=== PATIENT | female | born 1970 | race Caucasian/White ===

== ENCOUNTER 2016-08-02 10:43 | Outpatient (CLI) | payer MEDICARE, MEDICAID | END 2016-08-02 10:44 | disposition home or self-care (01) | DX: R92.1 Mammographic calcification found on diagnostic imaging of breast (principal) ==

== ENCOUNTER 2016-08-15 08:42 | Outpatient (CLI) | payer MEDICARE, MEDICAID | END 2016-08-15 08:43 | disposition home or self-care (01) | DX: E78.5 Hyperlipidemia, unspecified (principal); D64.9 Anemia, unspecified; E03.9 Hypothyroidism, unspecified; E55.9 Vitamin D deficiency, unspecified ==

== ENCOUNTER 2017-03-02 09:09 | Outpatient (CLI) | payer MEDICARE, MEDICAID ==
--- NOTE | 2017-03-02 16:29 | Mammography Report ---
DIGITAL DIAGNOSTIC LEFT MAMMOGRAM: 03/02/2017 CLINICAL INDICATION: Followup calcifications. TECHNIQUE: Left CC, MLO, true lateral, and spot magnification views. COMPARISON: 07/2016, 02/2016, 06/2015, 05/2015, 09/2013, 10/2012, 03/2012, 02/2012, 12/2010, 01/2010. FINDINGS: The left breast demonstrates scattered fibroglandular densities. Calcifications in the lef t lower central breast are stable. Fat necrosis in the left upper inner posterior breast is stable. N o suspicious masses, clustered microcalcifications, or regions of architectural distortion are identi fied. IMPRESSION: PROBABLE BENIGN CALCIFICATIONS IN THE LEFT LOWER CENTRAL BREAST. RECOMMENDATION: DIAGNOSTIC BILATERAL MAMMOGRAM IN SIX MONTHS. BIRADS CATEGORY 3-PROBABLE BENIGN FINDINGS. STANDARD QUALIFYING STATEMENTS 1. This examination was reviewed with the aid of Computer-Aided Detection (CAD). 2. A negative or benign imaging report should not delay biopsy if clinically suspicious findings are present. Consider surgical consultation if warranted. More than 5% of cancers are not identified by i maging. 3. Dense breasts may obscure an underlying neoplasm. JOB #: [id number] EXT JOB #:[id number]
== END 2017-03-02 09:10 | disposition home or self-care (01) ==
LOC: DI 09:09
PROVIDERS: ATTEND Family Medicine
DX: R92.1 Mammographic calcification found on diagnostic imaging of breast (principal)

== ENCOUNTER 2017-03-21 08:44 | Outpatient (CLI) | payer MEDICAID, MEDICARE ==
[2017-03-21 14:22] LABS: BASOPHILS % (AUTO) 0.5 %; EOSINOPHILS # (AUTO) 0.2 10^3/uL (0.0-0.7); EOSINOPHILS % (AUTO) 3.1 %; HCT - HEMATOCRIT 35.9 % (37.0-47.0); HGB - HEMOGLOBIN 12.2 g/dL (12.0-16.0); LYMPHOCYTES # (AUTO) 2.4 10^3/uL (1.5-3.5); LYMPHOCYTES % (AUTO) 40.1 %; MEAN CORPUSCULAR HEMOGLOBIN 29.8 pg (27.0-31.0); MEAN CORPUSCULAR VOLUME 87.7 fL (81.0-99.0); MEAN PLATELET VOLUME 8.1 fL (7.9-10.8); MONOCYTES # (AUTO) 0.5 10^3/uL (0.0-1.0); MONOCYTES % (AUTO) 8.5 %; NEUTROPHILS # (AUTO) 2.8 10^3/uL (1.5-6.6); NEUTROPHILS % (AUTO) 47.8 %; RED BLOOD COUNT 4.09 10^6/uL (4.20-5.40); RED CELL DISTRIBUTION WIDTH 13.5 % (12.0-15.0); UNCORRECTED WHITE BLOOD COUNT 5.9 x10^3/uL; WHITE BLOOD COUNT 5.9 x10^3/uL (4.8-10.8)
[2017-03-21 14:38] LABS: ALBUMIN/GLOBULIN RATIO 1.4 (1.0-2.2); BILIRUBIN,TOTAL 0.4 mg/dL (0.2-1.0); BUN - BLOOD UREA NITROGEN 22 mg/dL (6-20); CALCIUM 9.8 mg/dL (8.5-10.3); CARBON DIOXIDE - CO2 31 mmol/L (21-32); CHLORIDE 100 mmol/L (101-111); CHOL/HDL RATIO 3.1 (<4.4); CHOLESTEROL 159 mg/dL; GFR - MDRD 59 (>89); GLUCOSE 93 mg/dL (70-100); HDL CHOLESTEROL 52 mg/dL; LDL/HDL RATIO 1.8 (<4.4); POTASSIUM 3.7 mmol/L (3.5-5.0); SODIUM 140 mmol/L (135-145); TOTAL PROTEIN 7.4 g/dL (6.7-8.2); TRIGLYCERIDES 71 mg/dL; VLDL CHOLESTEROL 14 mg/dL
== END 2017-03-21 23:59 ==
LOC: LAB.N 08:44
PROVIDERS: ATTEND Family Medicine
DX: E78.5 Hyperlipidemia, unspecified (principal); D64.9 Anemia, unspecified; E03.9 Hypothyroidism, unspecified
CPT/HCPCS: 36415; 80053; 80061; 84443; 85025

== ENCOUNTER 2017-09-17 08:00 | Outpatient (CLI) | payer MEDICARE ==
[2017-09-17 12:34] LABS: BASOPHILS % (AUTO) 0.5 %; EOSINOPHILS # (AUTO) 0.2 10^3/uL (0.0-0.7); EOSINOPHILS % (AUTO) 3.3 %; HGB - HEMOGLOBIN 11.1 g/dL (12.0-16.0); LYMPHOCYTES # (AUTO) 2.2 10^3/uL (1.5-3.5); LYMPHOCYTES % (AUTO) 44.6 %; MEAN CORPUSCULAR HEMOGLOBIN 30.3 pg (27.0-31.0); MEAN CORPUSCULAR HGB CONC 33.3 g/dL (32.0-36.0); MEAN CORPUSCULAR VOLUME 90.9 fL (81.0-99.0); MEAN PLATELET VOLUME 7.9 fL (7.9-10.8); MONOCYTES # (AUTO) 0.4 10^3/uL (0.0-1.0); MONOCYTES % (AUTO) 8.2 %; NEUTROPHILS # (AUTO) 2.1 10^3/uL (1.5-6.6); NEUTROPHILS % (AUTO) 43.4 %; PLT - PLATELET COUNT 281 10^3/uL (130-450); RED BLOOD COUNT 3.67 10^6/uL (4.20-5.40); RED CELL DISTRIBUTION WIDTH 14.6 % (12.0-15.0); WHITE BLOOD COUNT 4.9 x10^3/uL (4.8-10.8)
[2017-09-17 12:45] LABS: ALBUMIN 3.6 g/dL (3.2-5.5); ALBUMIN/GLOBULIN RATIO 1.1 (1.0-2.2); BILIRUBIN,TOTAL 0.3 mg/dL (0.2-1.0); CALCIUM 9.3 mg/dL (8.5-10.3); CREATININE 0.9 mg/dL (0.4-1.0)
[2017-09-17 12:56] LABS: THYROID STIMULATING HORMONE 3.41 uIU/mL (0.34-5.60)
[2017-09-17 12:58] LABS: FREE T4 (FREE THYROXINE) 0.69 ng/dL (0.58-1.64)
== END 2017-09-17 08:01 | disposition home or self-care (01) ==
LOC: LAB.N 08:00
PROVIDERS: ATTEND Family Medicine
DX: E03.9 Hypothyroidism, unspecified (principal); F41.8 Other specified anxiety disorders
CPT/HCPCS: 36415; 80053; 84439; 84443; 85025

== ENCOUNTER 2017-09-21 10:55 | Outpatient (CLI) | payer MEDICARE ==
--- NOTE | 2017-09-21 15:33 | Mammography Report ---
Procedure Date: 09/21/2017 Accession Number: [id number] / [id number] Procedure: [facility] - Diagnostic Dig Bilat CPT Code: FULL RESULT: EXAM: Diagnostic Dig Bilat DATE: 09/21/2017 11:25 AM CLINICAL HISTORY: Follow-up calcifications TECHNIQUE: Bilateral digital CC and MLO projections with additional left true lateral and magnification views. COMPARISON: 03/02/2017, 08/02/2016, 02/25/2016, 06/17/2015, 05/31/2015, 10/27/2013, 11/13/2012, and 03/15/2012. FINDINGS: There are scattered fibroglandular densities. A right breast nodule in the 8:00 position posterior third with adjacent biopsy clip is stable. Changes of fat necrosis in the left breast are stable. Clustered benign-appearing coarse calcifications in the left breast 6:00 position may lie within the skin. No new suspicious mass, architectural distortion, skin thickening, suspicious microcalcifications or other finding IMPRESSION: Benign findings RECOMMENDATION: Routine screening in 1 year. BIRADS CATEGORY 2: Benign findings STANDARD QUALIFYING STATEMENTS: 1. This examination was reviewed with the aid of Computer-Aided Detection (CAD). 2. A negative or benign imaging report should not delay biopsy if clinically suspicious findings are present. Consider surgical consultation if warrented. More than 5% of cancers are not identified by imaging. 3. Dense breasts may obscure an underlying neoplasm.
== END 2017-09-21 10:56 | disposition home or self-care (01) ==
LOC: DI 10:55
PROVIDERS: ATTEND Family Medicine
DX: R92.1 Mammographic calcification found on diagnostic imaging of breast (principal)
CPT/HCPCS: 77066

== ENCOUNTER 2018-03-18 09:28 | Outpatient (CLI) | payer MEDICARE ==
[2018-03-18 12:52] LABS: BASOPHILS % (AUTO) 0.6 %; EOSINOPHILS # (AUTO) 0.1 10^3/uL (0.0-0.7); EOSINOPHILS % (AUTO) 3.1 %; HGB - HEMOGLOBIN 11.8 g/dL (12.0-16.0); LYMPHOCYTES % (AUTO) 43.5 %; MEAN CORPUSCULAR HEMOGLOBIN 30.6 pg (27.0-31.0); MEAN CORPUSCULAR HGB CONC 34.3 g/dL (32.0-36.0); MEAN CORPUSCULAR VOLUME 89.1 fL (81.0-99.0); MEAN PLATELET VOLUME 8.1 fL (7.9-10.8); MONOCYTES # (AUTO) 0.3 10^3/uL (0.0-1.0); MONOCYTES % (AUTO) 7.5 %; NEUTROPHILS # (AUTO) 2.1 10^3/uL (1.5-6.6); NEUTROPHILS % (AUTO) 45.3 %; PLT - PLATELET COUNT 266 10^3/uL (130-450); RED BLOOD COUNT 3.87 10^6/uL (4.20-5.40); RED CELL DISTRIBUTION WIDTH 14.1 % (12.0-15.0); WHITE BLOOD COUNT 4.6 x10^3/uL (4.8-10.8)
[2018-03-18 13:06] LABS: BUN - BLOOD UREA NITROGEN 23 mg/dL (6-20); CARBON DIOXIDE - CO2 31 mmol/L (21-32); CHLORIDE 101 mmol/L (101-111); CREATININE 0.8 mg/dL (0.4-1.0); SODIUM 139 mmol/L (135-145)
[2018-03-18 13:07] LABS: ALBUMIN 3.9 g/dL (3.2-5.5); ALBUMIN/GLOBULIN RATIO 1.2 (1.0-2.2); ALKALINE PHOSPHATASE 77 IU/L (42-121); ALT ALANINE AMINOTRANSFERASE 19 IU/L (10-60); AST ASPARTATE AMINOTRANSFERASE 22 IU/L (10-42); BILIRUBIN,TOTAL 0.4 mg/dL (0.2-1.0); CALCIUM 9.1 mg/dL (8.5-10.3); CHOL/HDL RATIO 2.6 (<4.4); CHOLESTEROL 160 mg/dL; GFR - MDRD 76 (>89); GLUCOSE 90 mg/dL (70-100); HDL CHOLESTEROL 62 mg/dL; LDL CHOLESTEROL,CALCULATED 86 mg/dL; LDL/HDL RATIO 1.4 (<4.4); TOTAL PROTEIN 7.1 g/dL (6.7-8.2); VLDL CHOLESTEROL 12 mg/dL
[2018-03-18 13:17] LABS: THYROID STIMULATING HORMONE 3.02 uIU/mL (0.34-5.60)
[2018-03-18 13:19] LABS: FREE T4 (FREE THYROXINE) 0.96 ng/dL (0.58-1.64)
== END 2018-03-18 23:59 | disposition home or self-care (01) ==
LOC: LAB.N 09:28
PROVIDERS: ATTEND Family Medicine
DX: D64.9 Anemia, unspecified (principal); E03.9 Hypothyroidism, unspecified; E78.5 Hyperlipidemia, unspecified
CPT/HCPCS: 36415; 80053; 80061; 83721; 84439; 84443; 85025

== ENCOUNTER 2018-10-15 08:00 | Outpatient (CLI) | payer MEDICARE ==
[2018-10-15 13:52] LABS: BASOPHILS % (AUTO) 0.6 %; EOSINOPHILS # (AUTO) 0.1 10^3/uL (0.0-0.7); EOSINOPHILS % (AUTO) 2.1 %; HGB - HEMOGLOBIN 12.2 g/dL (12.0-16.0); LYMPHOCYTES # (AUTO) 2.1 10^3/uL (1.5-3.5); LYMPHOCYTES % (AUTO) 44.4 %; MEAN CORPUSCULAR HEMOGLOBIN 29.3 pg (27.0-31.0); MEAN CORPUSCULAR HGB CONC 32.2 g/dL (32.0-36.0); MEAN CORPUSCULAR VOLUME 90.9 fL (81.0-99.0); MEAN PLATELET VOLUME 9.8 fL (7.9-10.8); MONOCYTES # (AUTO) 0.4 10^3/uL (0.0-1.0); MONOCYTES % (AUTO) 8.3 %; NEUTROPHILS # (AUTO) 2.1 10^3/uL (1.5-6.6); PLT - PLATELET COUNT 286 10^3/uL (130-450); RED BLOOD COUNT 4.17 10^6/uL (4.20-5.40); RED CELL DISTRIBUTION WIDTH 13.7 % (12.0-15.0); WHITE BLOOD COUNT 4.8 x10^3/uL (4.8-10.8)
== END 2018-10-15 23:59 | disposition home or self-care (01) ==
LOC: LAB.N 08:00
PROVIDERS: ATTEND Nurse Practitioner Gerontology
DX: D64.9 Anemia, unspecified (principal); E03.9 Hypothyroidism, unspecified; E78.5 Hyperlipidemia, unspecified
CPT/HCPCS: 36415; 85025

== ENCOUNTER 2018-10-17 12:06 | Outpatient (CLI) | payer MEDICARE ==
--- NOTE | 2018-10-21 08:36 | Mammography Report ---
Reason: MAMMOGRAPHIC SCREENING FOR BREAST CANCER Procedure Date: 10/17/2018 Accession Number: [id number] / [id number] Procedure: [facility]N - Screening Mammo Dig Bilat CPT Code: FULL RESULT: EXAM: Screening Mammo Dig Bilat DATE: 10/17/2018 12:29 PM CLINICAL HISTORY: Screening encounter. 10 year history of hormone therapy. History of breast reduction surgery in 2009. Family history of breast cancer in a maternal grandmother at the age of 78. TECHNIQUE: (B) - Bilateral CC and MLO views were obtained. COMPARISON: 09/21/2017 through 10/27/2013. PARENCHYMAL PATTERN: (A) - The breast(s) demonstrate(s) scattered fibroglandular densities. FINDINGS: There are coarse typically benign calcifications. A biopsy marker is seen in the lower right breast adjacent to a isodense relatively well-circumscribed nodule which demonstrates long-term stability, typically benign. There are no suspicious masses, calcifications, or areas of distortion. IMPRESSION: Benign findings. BI-RADS category 2. RECOMMENDATION: (ANNUAL) - Recommend routine annual screening mammography. BI-RADS CATEGORY: (2) - Benign Findings. STANDARD QUALIFYING STATEMENTS: 1. This examination was not reviewed with the aid of Computer-Aided Detection (CAD). 2. A negative or benign imaging report should not preclude biopsy if clinically suspicious findings are present. 3. Dense breasts may obscure an underlying neoplasm. 4. This examination was reviewed without the aid of 3D breast imaging (tomosynthesis).
== END 2018-10-17 12:07 | disposition home or self-care (01) ==
LOC: DI.N 12:06
PROVIDERS: ATTEND Nurse Practitioner Gerontology
DX: Z12.31 Encounter for screening mammogram for malignant neoplasm of breast (principal); Z80.3 Family history of malignant neoplasm of breast
CPT/HCPCS: 77067

== ENCOUNTER 2019-04-22 08:44 | Outpatient (CLI) | payer MEDICARE | END 2019-04-22 23:59 | disposition home or self-care (01) | LOC: LAB.N 08:44 | PROVIDERS: ATTEND Nurse Practitioner Gerontology | DX: E03.9 Hypothyroidism, unspecified (principal) | CPT/HCPCS: 36415; 84443 ==

== ENCOUNTER 2022-10-12 14:45 | Outpatient (CLI) | payer MEDICARE ==
--- NOTE | 2022-10-12 15:30 | Sleep Patient Instructions ---
Sleep Center Visit Summary - Patient Visit Information Reason for Visit: Initial consult with patient on PAP therapy - Patient Instructions Additional Instructions: You will continue with CPAP therapy with pressure changed to 10-12 cmH2O. A supply prescription will be updated with your DME once we have a copy of sleep study We encourage you to continue to try to lose weight. Please follow up with the sleep care office in 1-2 months. - Clinic Information Contact: [facility] [address] [place] [address] [email or web address] T: [phone]
--- NOTE | 2022-10-12 15:37 | SLEEP CARE CONSULTATION ---
Information from patient questionnaire entered by Melody Phoenix. I have reviewed and concur with the information entered by Melody Phoenix. This document represents the service I personally performed and the decisions made by me, Rosemary Sims ARNP. History of Present Illness Service Date and Time: 10/12/2022 1445 Reason for Visit: New patient, sleep apnea on CPAP therapy Chief Complaint: reports: Other (sleep apnea f/u) Date of Onset: 1999 Usual bedtime: 10pm Time it takes to fall asleep: 5min Snores at night: Yes Number of times waking at night: 1-2 Reasons for waking at night: reports: Bathroom Toss, Turn, or Twitch while sleeping: No Recalls having dreams: Yes Usually gets out of bed at: 7am Feels refreshed in the morning: Yes Morning headache: No Sleepy or fatigued during the day: Yes Ever fallen asleep while driving: No Takes day naps: Yes Dreams during day naps: Yes Prior sleep studies: Yes Year and Where: 9 months ago; [facility] Additional HPI information: BRITTANEY NORMAN was previously diagnosed to have unknown, AHI unknown, obstructive sleep apnea-hypopnea syndrome and comes in today to establish care for CPAP therapy. - Parasomnia Symptoms Ever been unable to move upon waking from sleep: No Walks in sleep: No Talks in sleep: Yes Ever acted out dreams in sleep: No Ever felt weak in the knees when startled or emotional: No Bothered by creepy, crawly, restless sensations in legs: No Problems with memory or concentration: No CPAP Compliance Data - Data Reviewed with Patient Average duration of nightly device use: 3 hours 52 minutes Compliance rate %: 42 (78/90 days used) Current pressure setting (cmH2O): 12-16 (median 12.2, avg 13.4, max 13.8) Average residual AHI: 9.9 Central apnea: 9.6 Obstructive apnea: 0.2 Hypopnea: 0.1 Average large leak: 0.1 L/min Compliance data discussion: She has a ResMed Airsense 10 that was setup in 12/2021. She is getting her supplies from [employer]. She is using a full face mask, medium cushion, AirTouch F20. She gets her supplies regularly and washes her mask cushion daily. Subjective Missed days of use due to: reports: other (takes off to go to bathroom and forgets to put on) Patient concerns: reports: dry mouth, nose, throat, other (drools if sleeps on side). denies: aerophagia, mask discomfort, air blowing in eyes, mask leak noise, condensation in mask/hose, nasal congestion, epistaxis (occasionally) Observed to snore while using device: No Current pressure setting perceived as: comfortable On therapy, patient: reports: sleeping better, awakening more refreshed, being more awake and alert during the day, more rested overall. denies: drowsiness while driving Initial [place] Sleepiness Scale score: 6 (10/12/22) Past Medical History Past Medical History: reports: Hypertension, Hypothyroidism, Anxiety, Depression Social History The patient's occupation is a SE. Patient is and lives in [place]. Have you smoked in the past 12 months: No Alcohol use: No Caffeine use: Yes Caffeine amount and frequency: 1 can once a week Family History Family history of sleep disordered breathing: Yes Family Hx Sleep Apnea: Mother: Snoring, Father: Snoring, Grandparent: Snoring Allergies and Home Medications Known drug allergies: Yes (as listed) Drug allergies reviewed: Yes Home medication list reviewed: Yes (see updated list in EMR) Allergy and home medication list: Allergies diphenhydramine HCl * [From Benadryl] Allergy (Severe, Verified 10/11/22 15:03) anaphylaxis ciprofloxacin [From Cipro] Allergy (Unknown, Verified 01/30/14 17:38) SNEEZING ciprofloxacin HCl * [From Cipro] Allergy (Unknown, Verified 01/30/14 17:38) SNEEZING gabapentin [From Neurontin] Allergy (Unknown, Verified 01/30/14 17:38) SNEEZING/RASH Iodinated Contrast Media [Iodinated Contrast Media - IV Dye] Allergy (Verified 01/30/14 17:38) SNEEZING latex Allergy (Verified 01/30/14 17:38) BLISTERS Review of Systems Weight gain over past 5 years: 30 Cardiovascular: reports: high blood pressure, irregular heart rate or pulse, leg or foot swelling Gastrointestinal: denies: heartburn Neurological: denies: headaches Psychiatric: reports: anxiety, depression Ear/Nose/Throat: reports: dry mouth/throat, wisdom teeth removed Endocrine: reports: thyroid disease, sluggishness Musculoskeletal: reports: back pain Immunologic: reports: sneezing, itching, allergies to food or environment Physical Exam Vital signs obtained and entered by: MELODY Castano MA Blood Pressure: 126/68 (left arm) Cuff size: regular Heart Rate: 67 O2 Saturation: 97 Height: 5 ft 5 in Weight: 200 lb 12.8 oz Body Mass Index: 33.4 BMI Classification: Obese Neck circumference: 15 Heart: regular rate and rhythm Lungs: clear bilaterally Impression and Plan 1. Obstructive Sleep Apnea-Hypopnea Syndrome, unknown, with fair treatment compliance and fair apnea control with elevated residual AHI. On CPAP therapy, the patient has better sleep quality and is more rested overall. Brittaney was diagnosed about 9 months ago and is trying to use her CPAP more. She states that she drools when she sleeps on her side and this will collect in the full face mask and she can't keep on mask. She states she likes the full face mask, feels it is comfortable. She just is too sleepy to remember to put mask on after getting up to bathroom. To prevent falling asleep without CPAP after using the bathroom, she can put mask on pillow. She voiced agreement. She has an elevated residual AHI with central index of 9.6 of the 9.9. The patients pressure will be changed to autoCPAP 10-12 cmH20 for elevation of residual AHI. Patient advised to contact me if pressure change is uncomfortable so that it can be adjusted. Goals for apnea control discussed. Patient's apnea severity and rationale for treatment to reduce apnea, improve sleep quality and reduce cardiovascular and cerebrovascular events was reviewed. I also reviewed the benefit of consistent device use of CPAP for hypertension and depression. 2. Obesity, unspecified. Currently patients BMI is 33.2. Obesity increases the risk of apnea, CPAP pressure requirements and overall health risks especially cardiovascular and diabetes. Thus patient is advised to lose weight. * Change auto CPAP pressure to 10-12 cmH2O * Update supply prescription once we have a copy of last sleep study * Notify me if snoring with mask or feeling that the pressure is too much or too little * Attempt to lose weight * Call this office if any problems using CPAP * Return for follow up in 1-2 months, or sooner if concerns arise Counseling Topics: Spare mask, Weight loss health impact Visit Type: In Office Time Spent with Patient (minutes): 35 Provider Statement: I spent 100% of the Face to Face Visit with the patient with greater than 50% spent counseling the patient and coordination of care.
[2022-10-12 15:44] VITALS: BP 126/68
== END 2022-10-12 14:46 | disposition home or self-care (01) ==
LOC: SC 14:45
PROVIDERS: ATTEND Nurse Practitioner Family
DX: G47.33 Obstructive sleep apnea (adult) (pediatric) (principal); E66.9 Obesity, unspecified; Z68.33 Body mass index [BMI] 33.0-33.9, adult
CPT/HCPCS: 99203; G0463; 99212

== ENCOUNTER 2022-11-16 11:02 | Outpatient (CLI) | payer MEDICARE ==
--- NOTE | 2022-11-16 11:25 | Sleep Patient Instructions ---
Sleep Center Visit Summary - Patient Visit Information Reason for Visit: Five week followup for PAP therapy - Patient Instructions Additional Instructions: You were here for follow up of CPAP therapy. You will be continued on CPAP therapy with pressure at 6-8 cmH2O. Please let us know if the pressure change is uncomfortable and we can make further adjustments of the pressure. You should follow up with sleep care in 1-2 months. You may contact us sooner for any questions or concerns. - Clinic Information Contact: [facility] [address] [place] [address] [email or web address] T: [phone]
--- NOTE | 2022-11-16 11:31 | SLEEP CARE CONSULTATION ---
Information from patient questionnaire entered by Melody Phoenix. I have reviewed and concur with the information entered by Melody Phoenix. This document represents the service I personally performed and the decisions made by me, Rosemary Sims ARNP. History of Present Illness Service Date and Time: 11/16/2022 1102 Previous diagnosis: Moderate, Obstructive Sleep Apnea-Hypopnea Syndrome AHI: 22 (in 2021) Reason for follow up: other (5WEEK F/U) Equipment type: CPAP (ResMed 10, s/u 12/2021, SD CARD NEEDED) Equipment obtained from: [employer] (getting supplies as needed) Mask style: Full face Backup mask available: Yes (old mask) Last cushion change: 17 days ago Prior sleep studies: Yes Year and Where: 10/2021 HPI additional information: BENJA NORMAN was diagnosed to have moderate, AHI 22, obstructive sleep apnea- hypopnea syndrome and returned today for CPAP therapy 5 week follow-up. CPAP Compliance Data - Data Reviewed with Patient Average duration of nightly device use: 4 hours 40 minutes Compliance rate %: 73 (36/37 days used) Current pressure setting (cmH2O): 10-12 Average residual AHI: 11.8 Central apnea: 11 Obstructive apnea: 0.4 Hypopnea: 0.3 Average large leak: 0.1 L/min Subjective Patient concerns: reports: dry mouth, nose, throat (thinks it is medication). denies: aerophagia, mask discomfort, air blowing in eyes, mask leak noise, arreaga nsation in mask/hose, nasal congestion, epistaxis Observed to snore while using device: No Current pressure setting perceived as: comfortable On therapy, patient: reports: sleeping better, awakening more refreshed, being more awake and alert during the day, more rested overall. denies: drowsiness while driving Initial [place] Sleepiness Scale score: 6 Current [place] Sleepiness Scale score: 12 (11/16/22) Allergies and Home Medications Known drug allergies: Yes (as listed) Allergy and home medication list: Allergies diphenhydramine HCl * [From Benadryl] Allergy (Severe, Verified 11/15/22 09:13) anaphylaxis ciprofloxacin [From Cipro] Allergy (Unknown, Verified 11/15/22 09:13) SNEEZING ciprofloxacin HCl * [From Cipro] Allergy (Unknown, Verified 11/15/22 09:13) SNEEZING gabapentin [From Neurontin] Allergy (Unknown, Verified 11/15/22 09:13) SNEEZING/RASH Iodinated Contrast Media [Iodinated Contrast Media - IV Dye] Allergy (Verified 11/15/22 09:13) SNEEZING latex Allergy (Verified 11/15/22 09:13) BLISTERS Review of Systems Review of systems same as previous: Yes Physical Exam Vital signs obtained and entered by: MELODY Castano MA Blood Pressure: 100/64 (LEFT ARM) Cuff size: regular Heart Rate: 61 O2 Saturation: 96 Height: 5 ft 6 in Weight: 196 lb 6.4 oz Weight change since last visit: 4 lb gain Body Mass Index: 31.6 BMI Classification: Obese Impression and Plan 1. Obstructive Sleep Apnea-Hypopnea Syndrome, moderate, with good treatment compliance and fair apnea control with elevated residual AHI. On CPAP therapy, the patient has better sleep quality and is more rested overall. She has been able to consistently get at least 4 hours in her mask and is trying to slowly increase time in the mask. She has noticed a difference since doing this in her sleep and daytime energy. The main residual is central index at 11. The patient s pressure will be changed to autoCPAP 6-8 cmH20 for elevation of residual AHI. Patient advised to contact me if pressure change is uncomfortable so that it can be adjusted. Goals for apnea control discussed. I will have her come back in 1-2 months to recheck her AHI. Patient's apnea severity and rationale for treatment to reduce apnea, improve sleep quality and reduce cardiovascular and cerebrov ascular events was reviewed. I also reviewed the benefit of consistent device use of CPAP for hypertension and depression. 2. Obesity, unspecified. Currently patients BMI is 31.6. Obesity increases the risk of apnea, CPAP pressure requirements and overall health risks especially cardiovascular and diabetes. Thus patient is advised to lose weight. * Change auto CPAP pressure to 6-8 cmH2O * Notify me if snoring with mask or feeling that the pressure is too much or too little * Attempt to lose weight * Call this office if any problems using CPAP * Return for follow up in 1-2 months, or sooner if concerns arise Counseling Topics: Spare mask, Weight loss health impact Visit Type: In Office Time Spent with Patient (minutes): 16 Provider Statement: I spent 100% of the Face to Face Visit with the patient with greater than 50% spent counseling the patient and coordination of care.
[2022-11-16 11:40] VITALS: BP 100/64; O2SAT 96
== END 2022-11-16 11:03 | disposition home or self-care (01) ==
LOC: SC 11:02
PROVIDERS: ATTEND Nurse Practitioner Family
DX: G47.33 Obstructive sleep apnea (adult) (pediatric) (principal); E66.9 Obesity, unspecified; Z68.31 Body mass index [BMI] 31.0-31.9, adult
CPT/HCPCS: 99212; G0463

== ENCOUNTER 2023-01-21 20:30 | Outpatient (CLI) | payer MEDICARE | END 2023-01-21 20:31 | disposition home or self-care (01) | LOC: SC 20:30 | PROVIDERS: ATTEND Nurse Practitioner Family | DX: G47.33 Obstructive sleep apnea (adult) (pediatric) (principal); I10 Essential (primary) hypertension | CPT/HCPCS: 95811 ==

== ENCOUNTER 2023-02-09 13:44 | Outpatient (CLI) | payer MEDICARE ==
--- NOTE | 2023-02-09 14:10 | Sleep Patient Instructions ---
Sleep Center Visit Summary - Patient Visit Information Reason for Visit: Titration follow-up - Patient Instructions Additional Instructions: You were here for follow up of CPAP therapy. You will be continued on CPAP therapy with pressure at 12-13 cmH2O. Please let us know if the pressure change is uncomfortable and we can make further adjustments of the pressure. You should follow up with sleep care in 1-2 months. You may contact us sooner for any questions or concerns. - Clinic Information Contact: [facility] [address] [place] [id number] [email or web address] T: [phone]
--- NOTE | 2023-02-09 14:14 | SLEEP CARE CONSULTATION ---
Information from patient questionnaire entered by Melody Phoenix. I have reviewed and concur with the information entered by Melody Phoenix. This document represents the service I personally performed and the decisions made by , Rosemary Sims ARNP. History of Present Illness Service Date and Time: 02/09/2023 1344 Initial [place] Sleepiness Scale score: 6 Current [place] Sleepiness Scale score: 7 Additional HPI information: BENJA NORMAN returns for follow up of the sleep study with a manual CPAP titration study performed on 01/21/2023. The patient was informed of the following polysomnography findings: CPAP was initiated at 7 cmH2O and titrated up to CPAP at 13 cmH2O. CPAP at 12 cmH2O appeared to be best (AHI of 5.7 per hour on the pressure). There was supine sleep on the pressure. Oxygen saturation was mildly reduced. Lower CPAP settings allowed frequent residual respiratory events, mostly respiratory events. The patient appeared to have tolerated positive airway pressure therapy very well. I explained that the optimal CPAP pressure is 12 cmH2O. Sleep Study - Results Type of Sleep Study: Polysomnography (TITRATION F/U COMPLETED 01/21/23) Prior sleep studies: Yes Year and Where: 10/2021 Polysomnography/Home Sleep Study results: IMPRESSION: The quality of the study is good. CPAP was initiated at 7 cmH2O and titrated up to CPAP at 13 cmH2O. CPAP at 12 cmH2O appeared to be best (AHI of 5.7 per hour on the pressure). There was supine sleep on the pressure. Oxygen saturation was mildly reduced. Lower CPAP settings allowed frequent residual respiratory events, mostly respiratory events. The patient appeared to have tolerated positive airway pressure therapy very well. The patients sleep efficiency was normal. The sleep architecture was relatively normal as well considering the first night effect. There was no significant periodic leg movement of sleep. Cardiac rhythm was normal sinus rhythm without significant arrhythmia. No abnormal behavior (parasomnia) observed during the night. Allergies and Home Medications Known drug allergies: Yes (as listed) Drug allergies reviewed: Yes Home medication list reviewed: Yes (Levothyroixine 50 mcg) Allergy and home medication list: Allergies diphenhydramine HCl * [From Benadryl] Allergy (Severe, Verified 02/08/23 14:54) anaphylaxis ciprofloxacin [From Cipro] Allergy (Unknown, Verified 02/08/23 14:54) SNEEZING ciprofloxacin HCl * [From Cipro] Allergy (Unknown, Verified 02/08/23 14:54) SNEEZING gabapentin [From Neurontin] Allergy (Unknown, Verified 02/08/23 14:54) SNEEZING/RASH Iodinated Contrast Media [Iodinated Contrast Media - IV Dye] Allergy (Verified 02/08/23 14:54) SNEEZING latex Allergy (Verified 02/08/23 14:54) BLISTERS Review of Systems Review of systems same as previous: Yes (no changes) Physical Exam Vital signs obtained and entered by: Rosemary Watters NP Blood Pressure: 108/67 Cuff size: wrist (right) Heart Rate: 102 O2 Saturation: 99 Height: 5 ft 6 in Weight: 191 lb Body Mass Index: 30.8 BMI Classification: Obese Impression and Plan 1. Obstructive Sleep Apnea-Hypopnea Syndrome, moderate. She returned today after a titration study to find optimal pressure for her CPAP therapy. Titration showed best pressure to be 12 cmH2O using her full face mask, F20, on night of study. The patients pressure will be changed to autoCPAP 12-13 cmH20. Patient advised to contact me if pressure change is uncomfortable so that it can be adjusted. Goals for apnea control discussed. Patient's apnea severity and rationale for treatment to reduce apnea, improve sleep quality and reduce cardiovascular and cerebrovascular events was reviewed. I also reviewed the benefit of consistent device use of CPAP for hypertension and depression. 2. Obesity, unspecified. Currently patients BMI is 30.8. Obesity increases the risk of apnea, CPAP pressure requirements and overall health risks especially cardiovascular and diabetes. Thus patient is advised to lose weight. * Change auto CPAP pressure to 12-13 cmH2O * Notify me if snoring with mask or feeling that the pressure is too much or too little * Attempt to lose weight * Call this office if any problems using CPAP * Return for follow up in 1-2 months, or sooner if concerns arise Counseling Topics: Weight loss health impact Prescriptions: Other (pressure change) Visit Type: In Office Time Spent with Patient (minutes): 15 Provider Statement: I spent 100% of the Face to Face Visit with the patient with greater than 50% spent counseling the patient and coordination of care.
[2023-02-09 14:17] VITALS: BP 108/67; O2SAT 99
== END 2023-02-09 13:45 | disposition home or self-care (01) ==
LOC: SC 13:44
PROVIDERS: ATTEND Nurse Practitioner Family
DX: G47.33 Obstructive sleep apnea (adult) (pediatric) (principal); E66.9 Obesity, unspecified; Z68.30 Body mass index [BMI] 30.0-30.9, adult
CPT/HCPCS: 99212; G0463

== ENCOUNTER 2023-04-11 09:56 | Outpatient (CLI) | payer MEDICARE ==
--- NOTE | 2023-04-11 10:15 | Sleep Patient Instructions ---
Sleep Center Visit Summary - Patient Visit Information Reason for Visit: 2 month followup - Patient Instructions Additional Instructions: You were here for follow up of CPAP therapy. You will be continued on CPAP therapy with pressure at 12 cmH2O. You should follow up with sleep care in 3 months. You may contact us sooner for any questions or concerns. - Clinic Information Contact: [facility] [address] [place] [address] [email or web address] T: [phone]
--- NOTE | 2023-04-11 10:21 | SLEEP CARE CONSULTATION ---
Information from patient questionnaire entered by Nathalie Phoenix. I have reviewed and concur with the information entered by Nathalie Phoenix. This document represents the service I personally performed and the decisions made by , Rosemary Sims ARNP. History of Present Illness Service Date and Time: 04/11/2023 0956 Previous diagnosis: Moderate, Obstructive Sleep Apnea-Hypopnea Syndrome AHI: 22 (in 2021) Reason for follow up: other (2 MONTH F/U) Equipment type: CPAP (ResMed 10, s/u 12/2021, SD CARD NEEDED) Equipment obtained from: [employer] (getting supplies as needed) Mask style: Full face Mask brand: Resmed (AirFit F20) Backup mask available: Yes Last cushion change: 10 days ago Prior sleep studies: Yes Year and Where: 10/2021 Type of Sleep Study: Polysomnography (TITRATION F/U COMPLETED 01/21/23) HPI additional information: BENJA NORMAN was diagnosed to have moderate, AHI 22, obstructive sleep apnea- hypopnea syndrome and returned today for CPAP therapy two month follow-up. Sleep Study - Results Type of Sleep Study: Polysomnography (TITRATION F/U COMPLETED 01/21/23) Prior sleep studies: Yes Year and Where: 10/2021 CPAP Compliance Data - Data Reviewed with Patient Average duration of nightly device use: 4 hours 14 minutes Compliance rate %: 63 (59/60 days used; 77 in last 30 days) Current pressure setting (cmH2O): 12-13 (avg 12.5) Average residual AHI: 8 Central apnea: 5.6 Obstructive apnea: 0.1 Hypopnea: 0.2 Average large leak: 19.2 L/min Subjective Patient concerns: reports: dry mouth, nose, throat (dry mouth, oral venting; occasional). denies: aerophagia, mask discomfort, air blowing in eyes, mask leak noise, condensation in mask/hose, nasal congestion, epistaxis Observed to snore while using device: No Current pressure setting perceived as: comfortable On therapy, patient: reports: sleeping better, awakening more refreshed, being more awake and alert during the day, more rested overall. denies: drowsiness while driving Initial Malin Sleepiness Scale score: 6 Current Malin Sleepiness Scale score: 10 (04/11/23) Allergies and Home Medications Known drug allergies: Yes (as listed) Drug allergies reviewed: Yes Home medication list reviewed: Yes (no changes) Allergy and home medication list: Allergies diphenhydramine HCl * [From Benadryl] Allergy (Severe, Verified 04/09/23 08:38) anaphylaxis ciprofloxacin [From Cipro] Allergy (Unknown, Verified 04/09/23 08:38) SNEEZING ciprofloxacin HCl * [From Cipro] Allergy (Unknown, Verified 04/09/23 08:38) SNEEZING gabapentin [From Neurontin] Allergy (Unknown, Verified 04/09/23 08:38) SNEEZING/RASH Iodinated Contrast Media [Iodinated Contrast Media - IV Dye] Allergy (Verified 04/09/23 08:38) SNEEZING latex Allergy (Verified 04/09/23 08:38) BLISTERS Review of Systems Review of systems same as previous: Yes (NO CHANGE) Physical Exam Vital signs obtained and entered by: NATHALIE Castano MA Blood Pressure: 118/80 (LEFT ARM) Cuff size: regular Heart Rate: 69 O2 Saturation: 97 Height: 5 ft 6 in Weight: 186 lb 12.8 oz Body Mass Index: 30.1 BMI Classification: Obese Impression and Plan 1. Obstructive Sleep Apnea-Hypopnea Syndrome, moderate, with good treatment compliance and fair apnea control with elevated residual AHI. On CPAP therapy, the patient has better sleep quality and is more rested overall. Her central index is elevated at 5.6 and obstructive index at 0.1. The patients pressure will be changed to CPAP 12 cmH20 for elevation of residual AHI and to go back to titration study showing best control at this pressure. Patient advised to contact me if pressure change is uncomfortable so that it can be adjusted. Goals for apnea control discussed. Patient's apnea severity and rationale for treatment to reduce apnea, improve sleep quality and reduce cardiovascular and cerebrovascular events was reviewed. I also reviewed the benefit of consistent device use of CPAP for hypertension and depression. 2. Obesity, unspecified. Currently patients BMI is 30.1. Obesity increases the risk of apnea, CPAP pressure requirements and overall health risks especially cardiovascular and diabetes. Thus patient is advised to lose weight. * Change CPAP pressure to 12 cmH2O * Notify me if snoring with mask or feeling that the pressure is too much or too little * Attempt to lose weight * Call this office if any problems using CPAP * Return for follow up in 3 month, or sooner if concerns arise Adjust device pressure to (cmH2O): 12 Counseling Topics: Weight loss health impact Follow up with Sleep Care in: 3 months Visit Type: In Office Time Spent with Patient (minutes): 16 Provider Statement: I spent 100% of the Face to Face Visit with the patient with greater than 50% spent counseling the patient and coordination of care.
[2023-04-11 10:27] VITALS: BP 118/80; O2SAT 97
== END 2023-04-11 09:57 | disposition home or self-care (01) ==
LOC: SC 09:56
PROVIDERS: ATTEND Nurse Practitioner Family
DX: G47.33 Obstructive sleep apnea (adult) (pediatric) (principal); E66.9 Obesity, unspecified; Z68.30 Body mass index [BMI] 30.0-30.9, adult
CPT/HCPCS: 99212; G0463

== ENCOUNTER 2023-07-11 09:53 | Outpatient (CLI) | payer MEDICARE ==
--- NOTE | 2023-07-11 10:44 | Sleep Patient Instructions ---
Sleep Center Visit Summary - Patient Visit Information Reason for Visit: 3-month follow-up - Patient Instructions Additional Instructions: You were here for follow up of CPAP therapy. You will be continued on CPAP therapy with pressure at 11 cmH2O. Please let us know if the pressure change is uncomfortable and we can make further adjustments of the pressure. You should follow up with sleep care in 1-2 months. You may contact us sooner for any questions or concerns. - Clinic Information Contact: [facility] [address] [place] [address] [email or web address] T: [phone]
--- NOTE | 2023-07-11 10:46 | SLEEP CARE CONSULTATION ---
Information from patient questionnaire entered by Melody Phoenix. I have reviewed and concur with the information entered by Melody Phoenix. This document represents the service I personally performed and the decisions made by me, Rosemary Sims ARNP. History of Present Illness Service Date and Time: 07/11/2023 0953 Previous diagnosis: Moderate, Obstructive Sleep Apnea-Hypopnea Syndrome AHI: 22 (in 2021) Reason for follow up: three month (F/U) Equipment type: CPAP (ResMed 10, s/u 12/2021, SD CARD NEEDED) Equipment obtained from: [employer] (getting supplies as needed) Mask style: Full face Mask brand: Resmed (F20 with mouth strips) Backup mask available: Yes Last cushion change: just over a month Prior sleep studies: Yes Year and Where: 10/2021 Type of Sleep Study: Polysomnography (TITRATION F/U COMPLETED 01/21/23) HPI additional information: BENJA NORMAN was diagnosed to have moderate, AHI 22, obstructive sleep apnea- hypopnea syndrome and returned today for CPAP therapy three month with pressure change follow-up. Sleep Study - Results Type of Sleep Study: Polysomnography (TITRATION F/U COMPLETED 01/21/23) Prior sleep studies: Yes Year and Where: 10/2021 CPAP Compliance Data - Data Reviewed with Patient Average duration of nightly device use: 5 hours 24 minutes Compliance rate %: 88 (04/12/23-07/10/23; 88/90 days used) Current pressure setting (cmH2O): 12 Average residual AHI: 7.2 Central apnea: 6.5 Obstructive apnea: 0.3 Hypopnea: 0.2 Average large leak: 16.4 L/min Subjective Missed days of use due to: reports: other (sister in hospital) Patient concerns: denies: aerophagia, mask discomfort, air blowing in eyes, mask leak noise, condensation in mask/hose, nasal congestion, dry mouth, nose, throat, epistaxis Observed to snore while using device: No Current pressure setting perceived as: comfortable On therapy, patient: reports: sleeping better, awakening more refreshed, being more awake and alert during the day, more rested overall. denies: drowsiness while driving Initial [place] Sleepiness Scale score: 6 Current [place] Sleepiness Scale score: 7 Allergies and Home Medications Known drug allergies: Yes (as listed) Drug allergies reviewed: Yes Home medication list reviewed: Yes (no changes) Allergy and home medication list: Allergies diphenhydramine HCl * [From Benadryl] Allergy (Severe, Verified 07/09/23 09:51) anaphylaxis ciprofloxacin [From Cipro] Allergy (Unknown, Verified 07/09/23 09:51) SNEEZING ciprofloxacin HCl * [From Cipro] Allergy (Unknown, Verified 07/09/23 09:51) SNEEZING gabapentin [From Neurontin] Allergy (Unknown, Verified 07/09/23 09:51) SNEEZING/RASH Iodinated Contrast Media [Iodinated Contrast Media - IV Dye] Allergy (Verified 07/09/23 09:51) SNEEZING latex Allergy (Verified 07/09/23 09:51) BLISTERS Review of Systems Review of systems same as previous: Yes (no changes) Physical Exam Vital signs obtained and entered by: ROSEMARY ECHOLS Blood Pressure: 100/69 Cuff size: regular (left arm) Heart Rate: 64 O2 Saturation: 100 Height: 5 ft 6 in Weight: 182 lb 9.6 oz Body Mass Index: 29.5 BMI Classification: Overweight Impression and Plan 1. Obstructive Sleep Apnea-Hypopnea Syndrome, moderate, with good treatment compliance and fair apnea control. On CPAP therapy, the patient has better sleep quality and is more rested overall. The patients pressure will be changed to autoCPAP 11 cmH20 for elevation of residual AHI. Patient advised to contact me if pressure change is uncomfortable so that it can be adjusted. Goals for apnea control discussed. Patient's apnea severity and rationale for treatment to reduce apnea, improve sleep quality and reduce cardiovascular and cerebrovascular events was reviewed. I also reviewed the benefit of consistent device use of CPAP for hypertension, depression. 2. Overweight, unspecified. Currently patients BMI is 29.6. Obesity increases the risk of apnea, CPAP pressure requirements and overall health risks especially cardiovascular and diabetes. Thus patient is advised to continue to try to lose weight. * Change auto CPAP pressure to 11 cmH2O * Notify me if snoring with mask or feeling that the pressure is too much or too little * Continue to try to lose weight * Call this office if any problems using CPAP * Return for follow up in 1-2 months, or sooner if concerns arise Adjust device pressure to (cmH2O): 11 Counseling Topics: Spare mask, Weight loss health impact Follow up with Sleep Care in: 1-2 months Visit Type: In Office Time Spent with Patient (minutes): 20 Provider Statement: I spent 100% of the Face to Face Visit with the patient with greater than 50% spent counseling the patient and coordination of care.
[2023-07-11 10:47] VITALS: BP 100/69; O2SAT 100
== END 2023-07-11 09:54 | disposition home or self-care (01) ==
LOC: SC 09:53
PROVIDERS: ATTEND Nurse Practitioner Family
DX: G47.33 Obstructive sleep apnea (adult) (pediatric) (principal); E66.3 Overweight; Z68.29 Body mass index [BMI] 29.0-29.9, adult
CPT/HCPCS: 99213; G0463; 99212

== ENCOUNTER 2023-09-27 08:49 | Outpatient (CLI) | payer MEDICARE ==
--- NOTE | 2023-09-27 09:25 | Sleep Patient Instructions ---
Sleep Center Visit Summary - Patient Visit Information Reason for Visit: 2-month follow-up - Patient Instructions Additional Instructions: You were here for follow up of CPAP therapy. You will be continued on CPAP therapy with pressure at 10.6 cmH2O. Please let us know if the pressure change is uncomfortable and we can make further adjustments of the pressure. You should follow up with sleep care in 3 months. You may contact us sooner for any questions or concerns. - Clinic Information Contact: [facility] [address] [place] [id number] [email or web address] T: [phone]
--- NOTE | 2023-09-27 09:27 | SLEEP CARE CONSULTATION ---
Information from patient questionnaire entered by Nathalie Phoenix. I have reviewed and concur with the information entered by Nathalie Phoenix. This document represents the service I personally performed and the decisions made by me, Rosemary Sims ARNP. History of Present Illness Service Date and Time: 09/27/2023 0849 Previous diagnosis: Moderate, Obstructive Sleep Apnea-Hypopnea Syndrome AHI: 22 (in 2021) Reason for follow up: other (2 MONTH F/U) Equipment type: CPAP (ResMed 10, s/u 12/2021, SD CARD NEEDED) Equipment obtained from: [employer] (getting supplies as needed) Mask style: Full face Mask brand: Resmed (AirFit) Backup mask available: Yes Last cushion change: 3+ weeks Prior sleep studies: Yes Year and Where: 10/2021 Type of Sleep Study: Polysomnography (TITRATION F/U COMPLETED 01/21/23) HPI additional information: BENJA NORMAN was diagnosed to have moderate, AHI 22, obstructive sleep apnea- hypopnea syndrome and returned today for CPAP therapy two month after pressure change follow-up. Sleep Study - Results Type of Sleep Study: Polysomnography (TITRATION F/U COMPLETED 01/21/23) Prior sleep studies: Yes Year and Where: 10/2021 CPAP Compliance Data - Data Reviewed with Patient Average duration of nightly device use: 6 hours 56 minutes Compliance rate %: 98 (60/60 days used) Current pressure setting (cmH2O): 11 Average residual AHI: 5.6 Central apnea: 4.6 Obstructive apnea: 0.1 Hypopnea: 0.1 Average large leak: 18.8 L/min Subjective Patient concerns: reports: mask leak noise (just adjust mask and is better). denies: aerophagia, mask discomfort, air blowing in eyes, condensation in mask/hose, nasal congestion, dry mouth, nose, throat, epistaxis Observed to snore while using device: No Current pressure setting perceived as: comfortable On therapy, patient: reports: sleeping better, awakening more refreshed, being more awake and alert during the day, more rested overall. denies: drowsiness while driving Initial [place] Sleepiness Scale score: 6 Current [place] Sleepiness Scale score: 13 (09/27/23) Allergies and Home Medications Known drug allergies: Yes (as listed) Drug allergies reviewed: Yes Home medication list reviewed: Yes (AMOXICILLIN) Allergy and home medication list: Allergies diphenhydramine HCl * [From Benadryl] Allergy (Severe, Verified 09/25/23 08:37) anaphylaxis ciprofloxacin [From Cipro] Allergy (Unknown, Verified 09/25/23 08:37) SNEEZING ciprofloxacin HCl * [From Cipro] Allergy (Unknown, Verified 09/25/23 08:37) SNEEZING gabapentin [From Neurontin] Allergy (Unknown, Verified 09/25/23 08:37) SNEEZING/RASH Iodinated Contrast Media [Iodinated Contrast Media - IV Dye] Allergy (Verified 09/25/23 08:37) SNEEZING latex Allergy (Verified 09/25/23 08:37) BLISTERS Review of Systems Review of systems same as previous: No (ROOT CANAL) Physical Exam Vital signs obtained and entered by: NATHALIE Castano MA Blood Pressure: 131/81 (LEFT ARM) Cuff size: regular Heart Rate: 68 O2 Saturation: 97 Height: 5 ft 6 in Weight: 180 lb 3.2 oz Weight change since last visit: 2 lb loss Body Mass Index: 29.0 BMI Classification: Overweight Impression and Plan 1. Obstructive Sleep Apnea-Hypopnea Syndrome, moderate, with good treatment compliance and good apnea control with minimal elevation of residual AHI. On CPAP therapy, the patient has better sleep quality and is more rested overall. The patients pressure will be changed to autoCPAP 10.6 cmH20 for elevation of residual AHI. Patient advised to contact me if pressure change is uncomfortable so that it can be adjusted. Goals for apnea control discussed. Patient's apnea severity and rationale for treatment to reduce apnea, improve sleep quality and reduce cardiovascular and cerebrovascular events was reviewed. I also reviewed the benefit of consistent device use of CPAP for hypertension, depression. 2. Overweight, unspecified. Currently patients BMI is 29. Obesity increases the risk of apnea, CPAP pressure requirements and overall health risks especially cardiovascular and diabetes. Thus patient is advised to continue to try to lose weight. * Change CPAP pressure to 10.6 cmH2O * Notify me if snoring with mask or feeling that the pressure is too much or too little * Attempt to lose weight * Call this office if any problems using CPAP * Return for follow up in 3 months, or sooner if concerns arise Adjust device pressure to (cmH2O): 10.6 Counseling Topics: Weight loss health impact Follow up with Sleep Care in: 3 months Visit Type: In Office Time Spent with Patient (minutes): 14 Provider Statement: I spent 100% of the Face to Face Visit with the patient with greater than 50% spent counseling the patient and coordination of care.
[2023-09-27 09:41] VITALS: BP 131/81; O2SAT 97
== END 2023-09-27 08:50 | disposition home or self-care (01) ==
LOC: SC 08:49
PROVIDERS: ATTEND Nurse Practitioner Family
DX: G47.33 Obstructive sleep apnea (adult) (pediatric) (principal); E66.3 Overweight; Z68.29 Body mass index [BMI] 29.0-29.9, adult
CPT/HCPCS: 99212; G0463

== ENCOUNTER 2023-12-27 11:32 | Outpatient (CLI) | payer MEDICARE ==
--- NOTE | 2023-12-27 12:21 | Sleep Patient Instructions ---
Sleep Center Visit Summary - Patient Visit Information Reason for Visit: 3-month follow-up for PAP therapy - Patient Instructions Additional Instructions: You were here for a follow up of CPAP therapy. You will be continued on CPAP therapy with pressure at 10 cmH2O. Please let us know if the pressure change is uncomfortable and we can make further adjustments of the pressure. You should follow up with sleep care in 6 months. You may contact us sooner for any questions or concerns. - Clinic Information Contact: [facility] [address] [place] [address] [email or web address] T: [phone]
--- NOTE | 2023-12-27 12:26 | SLEEP CARE CONSULTATION ---
Information from patient questionnaire entered by Darren Multani. I have reviewed and concur with the information entered by Darren Multani. This document represents the service I personally performed and the decisions made by , Rosemary Sims ARNP. History of Present Illness Service Date and Time: 12/27/2023 1132 Previous diagnosis: Moderate, Obstructive Sleep Apnea-Hypopnea Syndrome AHI: 22 (in 2021) Reason for follow up: three month (F/U - Pressure change) Equipment type: CPAP (Resmed Airsense 10, s/u 12/2021) Equipment obtained from: [employer] (getting supplies as needed) Mask style: Full face Mask brand: Resmed (AirFit F20) Backup mask available: Yes Last cushion change: 3 weeks Prior sleep studies: Yes Year and Where: 10/2021 Type of Sleep Study: Polysomnography (TITRATION F/U COMPLETED 01/21/23) HPI additional information: BENJA NORMAN was diagnosed to have moderate, AHI 22, obstructive sleep apnea- hypopnea syndrome and returned today for CPAP therapy three month follow-up. Sleep Study - Results Type of Sleep Study: Polysomnography (TITRATION F/U COMPLETED 01/21/23) Prior sleep studies: Yes Year and Where: 10/2021 CPAP Compliance Data - Data Reviewed with Patient Average duration of nightly device use: 7 h 4 mins Compliance rate %: 87 (82/90 days used) Current pressure setting (cmH2O): 10.6 Average residual AHI: 7.1 Central apnea: 6.5 Obstructive apnea: 0.3 Hypopnea: 0.1 Average large leak: 12.7 L/min Subjective Missed days of use due to: reports: other (power outage) Patient concerns: reports: other (Power outage/week). denies: aerophagia, mask discomfort, air blowing in eyes, mask leak noise, condensation in mask/hose, nasal congestion, dry mouth, nose, throat, epistaxis Observed to snore while using device: No Current pressure setting perceived as: comfortable On therapy, patient: reports: sleeping better, awakening more refreshed, being more awake and alert during the day, more rested overall. denies: drowsiness while driving Initial [place] Sleepiness Scale score: 6 (10/12/22) Current [place] Sleepiness Scale score: 8 (12/27/23) Allergies and Home Medications Known drug allergies: Yes (as listed) Drug allergies reviewed: Yes Home medication list reviewed: Yes (no changes) Allergy and home medication list: Allergies diphenhydramine HCl * [From Benadryl] Allergy (Severe, Verified 09/27/23 09:00) anaphylaxis ciprofloxacin [From Cipro] Allergy (Unknown, Verified 09/27/23 09:00) SNEEZING ciprofloxacin HCl * [From Cipro] Allergy (Unknown, Verified 09/27/23 09:00) SNEEZING gabapentin [From Neurontin] Allergy (Unknown, Verified 09/27/23 09:00) SNEEZING/RASH Iodinated Contrast Media [Iodinated Contrast Media - IV Dye] Allergy (Verified 09/27/23 09:00) SNEEZING latex Allergy (Verified 09/27/23 09:00) BLISTERS Review of Systems Review of systems same as previous: Yes (no changes) Physical Exam Vital signs obtained and entered by: Rosemary Watters NP Blood Pressure: 113/72 Cuff size: wrist (right) Heart Rate: 62 O2 Saturation: 99 Height: 5 ft 6 in Weight: 185 lb 6.4 oz (with jacket/keys) Body Mass Index: 29.9 BMI Classification: Overweight Impression and Plan 1. Obstructive Sleep Apnea-Hypopnea Syndrome, moderate, with good treatment compliance and fair apnea control with elevated residual AHI. On CPAP therapy, the patient has better sleep quality and is more rested overall. Her central index is elevated at 6.5 with her overall residual AHI of 7.1. The patients pressure will be changed to autoCPAP 10 cmH20 for elevation of residual AHI. Patient advised to contact me if pressure change is uncomfortable so that it can be adjusted. Goals for apnea control discussed. Patient's apnea severity and rationale for treatment to reduce apnea, improve sleep quality and reduce cardiovascular and cerebrovascular events was reviewed. I also reviewed the benefit of consistent device use of CPAP for hypertension and depression. 2. Overweight, unspecified. Currently patients BMI is 29.9. She has lost weight. Obesity increases the risk of apnea, CPAP pressure requirements and overall health risks especially cardiovascular and diabetes. Thus patient is advised to continue to try to lose weight. * Change auto CPAP pressure to 10 cmH2O * Notify me if snoring with mask or feeling that the pressure is too much or too little * Attempt to lose weight * Call this office if any problems using CPAP * Return for follow up in 6 months, or sooner if concerns arise Adjust device pressure to (cmH2O): 10 Counseling Topics: Spare mask, Weight loss health impact Follow up with Sleep Care in: 6 months Visit Type: In Office Time Spent with Patient (minutes): 20 Provider Statement: I spent 100% of the Face to Face Visit with the patient with greater than 50% spent counseling the patient and coordination of care.
[2023-12-27 12:27] VITALS: BP 113/72; O2SAT 99
== END 2023-12-27 11:33 | disposition home or self-care (01) ==
LOC: SC 11:32
PROVIDERS: ATTEND Nurse Practitioner Family
DX: G47.33 Obstructive sleep apnea (adult) (pediatric) (principal); E66.3 Overweight; Z68.29 Body mass index [BMI] 29.0-29.9, adult
CPT/HCPCS: 99213; G0463; 99212